=== PATIENT | female | born 1950 | race African-American/Black ===

== ENCOUNTER → 2016-10-30 | Outpatient (CLI) | payer OTHER ==
[~2016-10-30] VITALS: Ht 170.2 cm; Wt 67.0 kg
[~2016-10-30] MED LIST: CALCIUM; CIPROFLOXACIN500 M1 PO; CRANBERRY PLUS1 EACH PO; ENDOCET 10-3251 EACH PO; FISH OIL 1,001000 M2 PO; FLEXERIL; IBUPROFEN 800800 M1 PO; KLOR-CON 10 ER10 MEQ; LAMISIL250 MG PO; LIPITOR10 MG PO; LISINOPRIL10 MG PO; MEDROL DOSPAK21 TA1 PO; MULTIVITAMINS1 EAC7 PO; NAPROSYN500 MG PO; NOHOMEMEDICATIONS; NORCO 5-325 TA1 EACH PO; NORVASC5 MG PO; PERCOCET 5-3251 EACH; PERCOCET 5-3251 EACH PO; POTASSIUM GLUCONATE; PRILOSEC OTC20 MG PO; TRAZODONE HCL50 MG PO; VENTOLIN17 GM INH; ZOFRAN 4 MG ORAL4 M1 DIS; ZOFRAN4 MG PO; ZPAK PO; [UNRECOGNIZED DRUG - OTHER]
--- NOTE | ~2016-10-30 | HPC ---
[facility] [place] [address] PAIN MANAGEMENT CONSULTATION Name: HANNAH RIVERA [id number] Admission: 10/30/16 Attend Phys: Jaxon Melgar MD Discharge: Date of : 54 Report #: [id number] THIS REPORT FOR: //name// CC: Jeffy Melgar DATE OF SERVICE: 10/30/2016 FOLLOWUP COMPLAINT: The pain has improved, but is still really bad. FOLLOWUP HISTORY: The patient is a 66-year-old female who has been seen in the pain clinic because of lumbar radicular pain. As you may recall, she has significant pain radiating down into her leg, particularly in the L4-L5 distribution. She underwent an epidural steroid injection at the last visit. She returns indicating that her pain is improved, but still is having pain, which is problematic. She has not had any problems with her bowel or bladder since the last treatment. She continues to have a constant, burning, aching sensation in her legs. PHYSICAL EXAMINATION: Blood pressure 156/95, pulse 84, respiratory rate 16, room air saturation is 100. The patient has pain and discomfort in the lower portion of her back with burning down to the lower portion of her back and involving her feet. She continues to have a constant burning, aching, pounding pain with numbness in the L4-L5 distribution, lumbar radiculopathy involving the L4-L5 distribution with significant narrowing in the lumbar area. There is severe spinal stenosis seen with cord narrowing to 0.47 cm at L4-L5. At L3-L4, there is bulging seen with zzdjscmg-ci-ezhadi facet changes in moderate ligamentum flavum hypertrophy, severe stenosis with canal narrowing of 0.44 cm with some lateral recess narrowing and mild neural foraminal narrowing at L2-L3. IMPRESSION: 1. Lumbar radiculopathy with spinal stenosis and severe narrowing as described above. 2. Hypertension. 3. Hypercholesterolemia. 4. Gastrointestinal problems with use of . RECOMMENDATIONS: We discussed treatment options with the patient. Risks and benefits of an epidural steroid were again reviewed. Possible complications, but not limited to infection, increased muscle soreness, headache, weakness, worsening of pain were discussed and the patient elects to proceed. PROCEDURE NOTE: The patient was placed in the prone position. Fluoroscopy was used to identify the L4-L5 interspace. This area had been sterilely prepped with Betadine and infiltrated with 0.25% bupivacaine. A total of [address] [address] PAIN MANAGEMENT CONSULTATION Name: HANNAH RIVERA Room #: REG [facility]#: [id number] Admission: 10/30/16 Attend Phys: Jaxon Melgar MD Discharge: Date of : 54 Report #: [id number] Depo-Medrol plus 40 mg triamcinolone very slowly was injected into the L4-L5 space. During the procedure, the patient was constantly queried about her sensation. No sensation or discomfort was experienced during the procedure. She remained in the pain clinic for an appropriate amount of time. She is scheduled to go to [place] to see a play. Hopefully, when she gets there, she will be able to enjoy herself. We would like to thank you for letting us participate in her care. We hope she continues to improve. By: 1600 [id number] Jaxon Melgar MD /nt
[2016-10-30 13:06] VITALS: BP 156/95
== END ==
LOC: PAIN 06:36
DX: M54.16 Radiculopathy, lumbar region (principal); M48.06 Spinal stenosis, lumbar region; I10 Essential (primary) hypertension; E78.00 Pure hypercholesterolemia, unspecified; F17.210 Nicotine dependence, cigarettes, uncomplicated

== ENCOUNTER 2017-05-13 09:39 | Inpatient (IN) | payer OTHER ==
[~2017-05-13] VITALS: Ht 167.6 cm; Wt 62.1 kg
--- NOTE | ~2017-05-13 | HC ---
[facility] [address] CONSULTATION Name: HANNAH RIVERA Room #: 352-P ADM IN M.R.#: [id number] Admission: 05/13/17 Attend Phys: Sharif Smith DO Discharge: Date of : 54 Report #: [id number] THIS REPORT FOR: //name// CC: Sharif Smith DO Jeffy Reyes MD DATE OF SERVICE: 05/13/2017 TYPE OF REPORT: Gastroenterology consultation. PATIENT OF: Jeffy Reyes M.D. and Sharif Smith D.O. CHIEF COMPLAINT AND HISTORY OF PRESENT ILLNESS: This is a very pleasant 67-year-old -[place] female whom I was asked to evaluate for possible etiologies of nausea, vomiting, diarrhea and dizziness for the last 5 days. The patient presented with what appeared to be a urinary tract infection, possibly also a pyelonephrosis with sepsis. She was admitted and is having a workup done for this diagnosis. The patient tells me she has been experiencing dizziness and chills and fevers for the last 5 days. She has gone into an acute renal insufficiency episode with a creatinine of 2.4 right now. PAST MEDICAL HISTORY: Significant for diverticulosis, hypertension, hyperlipidemia, urinary tract infections and arthritis. PAST SURGICAL HISTORY: Significant for bilateral tubal ligation and total abdominal hysterectomy. ALLERGIES: PENICILLIN, SULFA and CHOCOLATE. MEDICATIONS: Prior to admission included oxycodone, omeprazole, multiple vitamins, Flexeril, terbinafine, Norvasc, Lipitor, cranberry, fish oil and potassium gluconate, Medrol Dosepak, lisinopril and trazodone. SOCIAL HISTORY: She does smoke. She does drink alcohol. FAMILY HISTORY: Negative for colon polyps, colon cancer, Crohn's disease and ulcerative colitis. REVIEW OF SYSTEMS: She denies any dysphagia, odynophagia, gastroesophageal reflux, hiatal hernia or peptic ulcer disease. She said her weight has been going down though her appetite is marginal. She has been taking Aleve for her back pain. She has been experiencing nausea, vomiting and diarrhea. Denies any constipation. She denies any hematemesis, hematochezia or melena. She denies any abdominal pain. [address] [address] CONSULTATION Name: HANNAH RIVERA Room #: 352-P [facility] IN ..#: [id number] Admission: 05/13/17 Attend Phys: Sharif Smith DO Discharge: Date of : 54 Report #: [id number] PHYSICAL EXAMINATION: GENERAL: Reveals a well-developed, well-nourished 67-year-old -[place] female, in no apparent distress at the time of the examination and is awake, alert and oriented x 4 and cooperative and pleasant to converse with. VITAL SIGNS: Blood pressure is 119/69, temperature 97.9, pulse 83 and respirations are 13. HEENT: She appears normocephalic and atraumatic and anicteric. HEART: Rate and rhythm are regular with a normal S1 and S2. LUNGS: Clear bilaterally. ABDOMEN: Soft, bowel sounds present in all 4 quadrants. There is no palpable organomegaly or mass. There is no tenderness, rebound or guarding. EXTREMITIES: Warm and dry. No peripheral cyanosis, clubbing or edema. NEUROLOGICAL: She appears grossly intact without lateralizing signs. SIGNIFICANT LABORATORY DATA: Her BMP has the following abnormalities: Sodium is low at 135, potassium is 3.5, BUN is 32, creatinine 2.4 and glucose was 168. Liver enzymes are normal except for an alkaline phosphatase of 129, which is mildly elevated. She also has a low lipase level at 71. Albumin is low at 2.6. White blood cell count is 15,000; hemoglobin 11.7; hematocrit 35.9; MCV is 86; MCH 28; MCHC 32.5; RDW is 14.8 and platelets are 229,000. Urinalysis showed 2+ protein, 2+ blood and nitrites were positive. RADIOLOGICAL DATA: Significant CT scans showed central calcification in the right kidney. This probably vascular. They do think it is a stone. The left kidney showed perinephric stranding. There is soft tissue prominence with a calcification in the region of the proximal left ureter, looks like a large renal vein adjacent to the ureter. There is a 3 x 1.8 cm left adrenal mass of undetermined etiology and it has not changed since 2013. Diverticulosis was also noted. IMPRESSION: 1. Nausea, vomiting and diarrhea for 5 days associated with fevers and chills. The patient has also been taking Aleve 200 mg 3 times a day. I think it is most likely related to urinary tract infection or pyelonephritis with possible sepsis. 2. Acute urinary tract infection with possible pyelonephritis. 3. Acute renal insufficiency, creatinine 2.4. 4. Hypertension. 5. Hyperlipidemia. 6. Arthritis of her lower back after a fall. 7. Status post bilateral tubal ligation and hysterectomy. 8. Diverticulosis on CT scan. RECOMMENDATIONS: My recommendations are as follows: We will start her on some Pepcid b.i.d. IV. We will keep her n.p.o. after midnight for an EGD in the [facility] [address] [place] [address] CONSULTATION Name: HANNAH RIVERA Room #: 352-P [facility] IN M.R.#: [id number] Admission: 05/13/17 Attend Phys: Sharif Smith DO Discharge: Date of : 54 Report #: [id number] morning. We will recheck a BMP and a CBC in the morning and we will also check her stools for blood as well as for etiologies of diarrhea. Thank you very much once again for allowing me to participate in her care, Dr. Smith and Dr. Reyes. <ELECTRONICALLY SIGNED> By: Salina Diego DO 05/13/17 2140 1648 30 Salina Diego DO /nt
--- NOTE | ~2017-05-13 | S ---
[facility] [place] [address] SURGICAL PATH RPT PROCEDURE Name: HANNAH RIVERA Room #: 352-P [facility] IN M.R.#: [id number] Admission: 05/13/17 Date of : 54 Discharge: 05/18/17 Report #: [id number] Path Case #: [id number] PATHOLOGY REPORT COLLECTION DATE: 05/17/2017 RECEIVED DATE: 05/17/2017 SUBMITTING PHYS: Dr. Freddy Escobedo OTHER PHYS: Dr. Sharif Reyes SPECIMEN(S) RECEIVED: A.Gallbladder * * * * * * * * * * * * FINAL DIAGNOSIS: Gallbladder "gallbladder and cholecystectomy": - Chronic cholecystitis with cholesterolosis. (SHA:mml; 05/18/2017) PATHOLOGIST: Junior Diaz M.D. REPORT ELECTRONICALLY SIGNED BY: Junior Diaz M.D. DATE/TIME: 05/18/2017 13:34 * * * * * * * * * * * * GROSS PATHOLOGY: Received in formalin labeled "Hannah Rivera gallbladder," is a 7.4 x 4.6 x 1.0 cm, previously opened gallbladder with light rogers, wrinkled serosal surfaces. Opening the gallbladder reveals light rogers, velvety mucosa and an average wall thickness of 0.2 cm. Calculi are not present (upon filtration of the specimen container and contents) and no masses are noted grossly. Loading Dock Hand sections from the body and fundus are submitted along with the proximal margin in cassette A1. (TSD; 05/17/2017) CLINICAL HISTORY: Pre-OP DX: Cholelithiasis and cholecystitis Post -OP DX: Cholecystitis, cholesterolosis INITIAL CPT CODE(S): A; 35767 Professional services performed by [facility] at [address] [place] [address] [facility] [address] [place] [address] SURGICAL PATH RPT PROCEDURE Name: HANNAH RIVERA Room #: 352-P [facility] IN M.R.#: [id number] Admission: 05/13/17 Date of : 54 Discharge: 05/18/17 Report #: [id number] Path Case #: [id number] Technical services performed by [facility] at [address] [place] [address], [facility] [address], [place] [address]. [facility] [address] [place] [address] PHONE: [phone] DIRECTOR: Antony Valverde M.D. * * * END OF REPORT * * *
--- NOTE | ~2017-05-13 | S ---
[facility] [place] [address] SURGICAL PATH RPT PROCEDURE Name: HANNAH RIVERA Room #: 352-P ADM IN M.R.#: [id number] Admission: 05/13/17 Date of : 54 Discharge: Report #: [id number] Path Case #: [id number] PATHOLOGY REPORT COLLECTION DATE: 05/14/2017 RECEIVED DATE: 05/14/2017 SUBMITTING PHYS: Dr. Lucho Adams OTHER PHYS: Dr. Sharif Reyes SPECIMEN(S) RECEIVED: A.Small bowel and antrum * * * * * * * * * * * * FINAL DIAGNOSIS: Small intestinal mucosa and gastric mucosa "small bowel and antrum, multiple biopsies": - Duodenal mucosa revealing mild focal acute and chronic duodenitis with lamina propria lymphocytes, plasma cells, and few neutrophils and eosinophils, without any acute ulceration. - The gastric mucosa reveals mild chronic reactive gastropathy with mild chronic inflammation. - The immunoperoxidase stains for Helicobacter pylori is negative. - Diagnostic features of Sprue are not seen. However suggest clinical and laboratory correlation. (SHA:pit; 05/17/2017) PATHOLOGIST: Junior Diaz M.D. REPORT ELECTRONICALLY SIGNED BY: Junior Diaz M.D. DATE/TIME: 05/17/2017 14:27 * * * * * * * * * * * * GROSS PATHOLOGY: Received in formalin labeled "Hannah Rivera, biopsy of small bowel and antrum, rule out H. pylori," are 4 segments of rogers soft tissue measuring 1.0 x 0.7 x 0.3 cm in aggregate dimensions and ranging from 0.3 to 0.5 cm in maximum dimension. The specimen is submitted entirely in cassette A1. (TSD; 05/14/2017) CLINICAL HISTORY: Pre-BX: Nausea, vomiting, diarrhea Post-OP DX: Duodenal ulcers, gastritis, Schatzki's ring INITIAL CPT CODE(S): [facility] [address] [place] [address] SURGICAL PATH RPT PROCEDURE Name: HANNAH RIVERA Room #: [address] [place] [address] [place] [facility].#: [id number] Admission: 05/13/17 Date of : 54 Discharge: Report #: [id number] Path Case #: [id number] A; [id number], [id number] Professional services performed by [facility] at [address] [place], [place] [address] Technical services performed by [facility] at [address] [place] [address], [address], [place] [address]. [facility] [place] [address] PHONE: [phone] DIRECTOR: Antony Valverde M.D. * * * END OF REPORT * * *
[2017-05-13 09:45] VITALS: BP 138/82
[2017-05-13 10:01] LABS: HEMATOCRIT 35.9 % (37.0-47.0); HEMOGLOBIN 11.7 gm/dL (12.0-15.0); MCHC 32.5 g/dL (28.0-37.0); MCV 86.1 fL (80.0-100.0); PLATELET COUNT 229 thou/uL (150-400); RBC 4.17 mil/uL (4.20-5.00); RDW 14.8 % (10.5-14.5)
[2017-05-13 10:03] LABS: MANUAL DIFF YES
[2017-05-13 10:09] LABS: CALCIUM 9.5 mg/dL (8.5-10.1); CREATININE 2.4 mg/dL (0.6-1.0); POTASSIUM 3.8 mmol/L (3.5-5.1)
[2017-05-13 10:14] LABS: ALBUMIN 2.6 g/dL (3.4-5.0); TOTAL BILIRUBIN 0.6 mg/dL (<0.1-1.0); TOTAL PROTEIN 7.1 g/dL (6.4-8.2)
[2017-05-13 10:53] LABS: ABSOLUTE NEUTROPHILS 13.5 thou/uL (1.4-8.2); PLATELET ESTIMATE NORMAL; TOTAL CELL COUNT 100
[2017-05-13 11:28] LABS: URINE BILIRUBIN NEGATIVE (Negative); URINE BLOOD 2+ (Negative); URINE COLOR YELLOW; URINE GLUCOSE-RANDOM* NEGATIVE (Negative); URINE KETONES NEGATIVE (Negative); URINE NITRITE POSITIVE (Negative); URINE PROTEIN (DIPSTICK) 2+ (Negative); URINE SPECIFIC GRAVITY 1.025 (1.005-1.035); URINE UROBILINOGEN 0.2 E.U./dl (0.2-1.0)
[2017-05-13 11:35] LABS: CASTS None Seen /LPF (None Seen); CRYSTALS None Seen /LPF (None Seen); SQUAMOUS 0-3 Few /LPF (0-3)
[2017-05-13 11:36] LABS: BACTERIA >30 Many /HPF (None Seen); URINE RBC 3-10 Few /HPF (0-2); URINE WBC 6-15 Few /HPF (0-5)
[2017-05-13 13:49] VITALS: BP 119/69
[2017-05-13 15:30] VITALS: BP 112/82
[2017-05-13 20:00] VITALS: BP 94/39
[2017-05-14 04:00] VITALS: BP 107/62
[2017-05-14 06:31] LABS: ABSOLUTE NEUTROPHILS 6.7 thou/uL (1.4-8.2); BASOPHILS 0.3 % (0.0-2.0); EOSINOPHILS 0.8 % (0.0-3.0); HEMATOCRIT 25.7 % (37.0-47.0); LYMPHOCYTES 9.2 % (24.0-44.0); MCH 28.8 pg (26.0-34.0); MCHC 33.4 g/dL (28.0-37.0); MCV 86.4 fL (80.0-100.0); MONOCYTES 7.7 % (1.0-8.0); PLATELET COUNT 178 thou/uL (150-400); RBC 2.97 mil/uL (4.20-5.00); WBC 8.1 thou/uL (4.0-11.0)
[2017-05-14 06:36] LABS: HEMOGLOBIN 8.6 gm/dL (12.0-15.0)
[2017-05-14 06:37] LABS: MANUAL DIFF NO
[2017-05-14 06:46] LABS: CALCIUM 8.1 mg/dL (8.5-10.1); CREATININE 1.7 mg/dL (0.6-1.0); POTASSIUM 4.1 mmol/L (3.5-5.1)
[2017-05-14 07:28] VITALS: BP 105/44
[2017-05-14 11:37] VITALS: BP 115/55
[2017-05-14 19:45] VITALS: BP 151/82
[2017-05-14] MEDS ORDERED: LYRICA 50 MG50 MG PO (23:03)
[2017-05-15 05:05] VITALS: BP 144/76
[2017-05-15 06:15] LABS: ABSOLUTE NEUTROPHILS 4.4 thou/uL (1.4-8.2); BASOPHILS 0.6 % (0.0-2.0); EOSINOPHILS 0.6 % (0.0-3.0); HEMATOCRIT 27.2 % (37.0-47.0); HEMOGLOBIN 8.9 gm/dL (12.0-15.0); LYMPHOCYTES 13.4 % (24.0-44.0); MCH 28.1 pg (26.0-34.0); MCHC 32.8 g/dL (28.0-37.0); MCV 85.5 fL (80.0-100.0); MONOCYTES 8.5 % (1.0-8.0); PLATELET COUNT 213 thou/uL (150-400); POLYS 76.9 % (36.0-66.0); RBC 3.18 mil/uL (4.20-5.00); WBC 5.7 thou/uL (4.0-11.0)
[2017-05-15 06:18] LABS: MANUAL DIFF NO
[2017-05-15 06:29] LABS: CALCIUM 9.2 mg/dL (8.5-10.1); CREATININE 1.8 mg/dL (0.6-1.0)
[2017-05-15 07:49] VITALS: BP 120/52
[2017-05-15 15:48] VITALS: BP 128/54
[2017-05-15 19:05] VITALS: BP 109/56
[2017-05-16 03:23] LABS: ABSOLUTE NEUTROPHILS 3.6 thou/uL (1.4-8.2); BASOPHILS 0.6 % (0.0-2.0); HEMATOCRIT 25.5 % (37.0-47.0); HEMOGLOBIN 8.5 gm/dL (12.0-15.0); LYMPHOCYTES 22.6 % (24.0-44.0); MCH 28.4 pg (26.0-34.0); MCHC 33.4 g/dL (28.0-37.0); MCV 85.1 fL (80.0-100.0); MONOCYTES 10.9 % (1.0-8.0); PLATELET COUNT 242 thou/uL (150-400); POLYS 63.9 % (36.0-66.0); RBC 2.99 mil/uL (4.20-5.00); RDW 15.5 % (10.5-14.5); WBC 5.7 thou/uL (4.0-11.0)
[2017-05-16 03:25] VITALS: BP 139/62
[2017-05-16 03:25] LABS: MANUAL DIFF NO
[2017-05-16 03:42] LABS: CALCIUM 8.4 mg/dL (8.5-10.1); CREATININE 1.6 mg/dL (0.6-1.0); POTASSIUM 3.9 mmol/L (3.5-5.1)
[2017-05-16 07:40] VITALS: BP 130/64
[2017-05-16 16:00] VITALS: BP 110/88
[2017-05-16 20:00] VITALS: BP 108/56
[2017-05-17 04:00] VITALS: BP 122/56
[2017-05-17 05:56] LABS: HEMATOCRIT 26.2 % (37.0-47.0); HEMOGLOBIN 8.7 gm/dL (12.0-15.0); MCH 28.3 pg (26.0-34.0); MCHC 33.1 g/dL (28.0-37.0); MCV 85.5 fL (80.0-100.0); RBC 3.06 mil/uL (4.20-5.00); RDW 15.9 % (10.5-14.5); WBC 5.3 thou/uL (4.0-11.0)
[2017-05-17 06:22] LABS: ALBUMIN 2.2 g/dL (3.4-5.0); CALCIUM 8.9 mg/dL (8.5-10.1); CREATININE 1.5 mg/dL (0.6-1.0); POTASSIUM 3.5 mmol/L (3.5-5.1); TOTAL BILIRUBIN 0.4 mg/dL (<0.1-1.0); TOTAL PROTEIN 5.4 g/dL (6.4-8.2)
[2017-05-17 07:35] VITALS: BP 133/57
[2017-05-17 08:34] VITALS: BP 130/91
[2017-05-17 16:00] VITALS: BP 108/55
[2017-05-17 19:02] VITALS: BP 110/56
[2017-05-18 04:41] VITALS: BP 123/66
[2017-05-18 06:39] LABS: HEMATOCRIT 25.1 % (37.0-47.0); HEMOGLOBIN 8.2 gm/dL (12.0-15.0); MCH 27.7 pg (26.0-34.0); MCHC 32.6 g/dL (28.0-37.0); RBC 2.95 mil/uL (4.20-5.00); RDW 15.6 % (10.5-14.5); WBC 7.8 thou/uL (4.0-11.0)
[2017-05-18 06:54] LABS: ALBUMIN 2.2 g/dL (3.4-5.0); CREATININE 1.3 mg/dL (0.6-1.0); POTASSIUM 3.7 mmol/L (3.5-5.1); TOTAL BILIRUBIN 0.2 mg/dL (<0.1-1.0); TOTAL PROTEIN 5.5 g/dL (6.4-8.2)
[2017-05-18 07:38] VITALS: BP 108/50
[2017-05-18] MEDS ORDERED: FLAGYL500 MG PO (08:12)
[2017-05-18] MEDS ORDERED: CIPRO500 MG PO (08:12)
[2017-05-18 17:51] VITALS: BP 108/50
== END 2017-05-18 19:15 | disposition home or self-care (01) | DRG 854 ==
LOC: ER 09:39 → 3W 10:56 → EROBS 10:56 → 3W 14:16 → ENTRNSPT 05-18 19:06 → 3W 05-18 19:15
PROVIDERS: Family Medicine; Physician Assistant; Surgery
PROC: 0DB68ZX Excision of Stomach, Via Natural or Artificial Opening Endoscopic, Diagnostic (ICD-10-PCS; 2017-05-14)
PROC: 0DB98ZX Excision of Duodenum, Via Natural or Artificial Opening Endoscopic, Diagnostic (ICD-10-PCS; 2017-05-14)
PROC: 0FT44ZZ Resection of Gallbladder, Percutaneous Endoscopic Approach (ICD-10-PCS; principal; 2017-05-17)
PROC: BF121ZZ Fluoroscopy of Gallbladder using Low Osmolar Contrast (ICD-10-PCS; principal; 2017-05-17)
DX: A41.9 Sepsis, unspecified organism (principal); N39.0 Urinary tract infection, site not specified; N17.9 Acute kidney failure, unspecified; N12 Tubulo-interstitial nephritis, not specified as acute or chronic; K80.10 Calculus of gallbladder with chronic cholecystitis without obstruction; K57.90 Diverticulosis of intestine, part unspecified, without perforation or abscess without bleeding; R65.20 Severe sepsis without septic shock; I10 Essential (primary) hypertension; E78.5 Hyperlipidemia, unspecified; M19.90 Unspecified osteoarthritis, unspecified site; F17.210 Nicotine dependence, cigarettes, uncomplicated; E86.0 Dehydration; K22.2 Esophageal obstruction; K44.9 Diaphragmatic hernia without obstruction or gangrene; K26.9 Duodenal ulcer, unspecified as acute or chronic, without hemorrhage or perforation; Z60.2 Problems related to living alone; K31.89 Other diseases of stomach and duodenum; D64.9 Anemia, unspecified; K52.9 Noninfective gastroenteritis and colitis, unspecified; Z90.710 Acquired absence of both cervix and uterus; Z88.0 Allergy status to penicillin; Z88.2 Allergy status to sulfonamides; Z79.899 Other long term (current) drug therapy; Z79.1 Long term (current) use of non-steroidal anti-inflammatories (NSAID)
CPT/HCPCS: 10879; 50010; 50101; 50249; 50411; 50555; 50962; 51489; 51975; 52265; 53307; 53314; 54022; 54118; 55245; 55317; 56462; 56525; 56526; 62110; 62900; 70005

== ENCOUNTER 2017-12-08 12:27 | Inpatient (IN) | payer OTHER ==
[~2017-12-08] VITALS: Ht 167.6 cm; Wt 60.1 kg
--- NOTE | ~2017-12-08 | EKG ---
[place] [address] [employer] [facility] [place] [address] ELECTROCARDIOGRAM REPORT Name: HANNAH RIVERA Room #: 455-P ADM IN M.R.#: [id number] Admission: 12/08/17 Attend Phys: Antoni Snell MD Discharge: Date of : 54 Report #: [id number] THIS REPORT FOR: //name// [facility] ED Test Date: 2017-12-08 Test Time: 12:58:43 Pat Name: HANNAH RIVERA Department: Room: Gender: F Import/Export Clerk: : 1950 Requested By: Guerrero Salazar Order Number: [id number] MD: Chad Simeon Measurements Intervals [place] Rate: 83 P: 48 W[place]: 160 QRS: -9 QRSD: 91 T: 47 QT: 382 QTc: 449 Interpretive Statements Sinus rhythm Probable anteroseptal infarct, age indeterminate Compared to ECG 12/14/2012 20:16:24 No significant changes Electronically Signed On 12-09-2017 8:01:55 CDT by Chad Simeon [email or web address] <ELECTRONICALLY SIGNED> By: Chad Simeon MD, [facility] 12/09/17 0801 1258 1258 Chad Simeon MD, [facility] /EPI
[~2017-12-08 12:27] MED LIST changes: +CIPRO500 MG PO; +FLAGYL500 MG PO; +LYRICA 50 MG50 MG PO
[2017-12-08 12:30] VITALS: BP 119/63
[2017-12-08 12:58] LABS: ABSOLUTE NEUTROPHILS 8.8 thou/uL (1.4-8.2); BASOPHILS 0.7 % (0.0-2.0); EOSINOPHILS 1.2 % (0.0-3.0); HEMATOCRIT 45.7 % (37.0-47.0); HEMOGLOBIN 15.3 gm/dL (12.0-15.0); LYMPHOCYTES 21.6 % (24.0-44.0); MCH 29.5 pg (26.0-34.0); MCHC 33.5 g/dL (28.0-37.0); MONOCYTES 6.2 % (1.0-8.0); PLATELET COUNT 261 thou/uL (150-400); POLYS 70.3 % (36.0-66.0); RBC 5.19 mil/uL (4.20-5.00); RDW 15.3 % (10.5-14.5); WBC 12.5 thou/uL (4.0-11.0)
[2017-12-08 13:03] LABS: ANION GAP 7 mmol/L (7-16); BUN 37 mg/dL (7-18); CALCIUM 10.7 mg/dL (8.5-10.1); CHLORIDE 97 mmol/L (98-107); CO2 28 mmol/L (21-32); CREATININE 2.7 mg/dL (0.6-1.0); GLUCOSE 121 mg/dL (74-106); POTASSIUM 4.1 mmol/L (3.5-5.1); SODIUM 132 mmol/L (136-145)
[2017-12-08 13:12] LABS: ALBUMIN 4.1 g/dL (3.4-5.0); LIPASE 90 U/L (73-393); SGOT 23 U/L (15-37); SGPT 40 U/L (30-65); TOTAL BILIRUBIN 0.9 mg/dL (<0.1-1.0); TOTAL PROTEIN 8.2 g/dL (6.4-8.2); TROPONIN-I <0.06 ng/mL (<0.06)
[2017-12-08 14:01] LABS: URINE BILIRUBIN NEGATIVE (Negative); URINE BLOOD NEGATIVE (Negative); URINE CLARITY CLEAR; URINE COLOR YELLOW; URINE GLUCOSE-RANDOM* NEGATIVE (Negative); URINE KETONES NEGATIVE (Negative); URINE LEUKOCYTES-REFLEX NEGATIVE (Negative); URINE NITRITE-REFLEX NEGATIVE (Negative); URINE PROTEIN (DIPSTICK) TRACE (Negative); URINE UROBILINOGEN 0.2 E.U./dl (0.2-1.0)
[2017-12-08 14:54] VITALS: BP 101/76
[2017-12-08 15:40] VITALS: BP 101/76
[2017-12-08 15:50] VITALS: BP 169/115
[2017-12-08 19:26] VITALS: BP 158/83
[2017-12-09 04:54] VITALS: BP 147/81
[2017-12-09 05:44] LABS: HEMATOCRIT 39.7 % (37.0-47.0); HEMOGLOBIN 13.4 gm/dL (12.0-15.0); MCH 30.1 pg (26.0-34.0); MCHC 33.6 g/dL (28.0-37.0); MCV 89.5 fL (80.0-100.0); RBC 4.44 mil/uL (4.20-5.00); RDW 15.1 % (10.5-14.5); WBC 7.5 thou/uL (4.0-11.0)
[2017-12-09 05:50] LABS: CALCIUM 9.4 mg/dL (8.5-10.1); CREATININE 1.6 mg/dL (0.6-1.0); POTASSIUM 3.9 mmol/L (3.5-5.1)
[2017-12-09] MEDS ORDERED: PROTONIX40 M1 PO (09:19)
[2017-12-09 14:01] VITALS: BP 147/81
[2017-12-09 16:16] LABS: NEISSERIA GONORRHEA-PCR Negative (Negative)
== END 2017-12-09 14:29 | disposition home or self-care (01) | DRG 871 ==
LOC: ER 12:27 → 4W 14:31 → EROBS 14:31 → 4W 15:35 → ENTRNSPT 12-09 14:19 → EDTRNSPTSTS 12-09 14:22 → 4W 12-09 14:29
PROVIDERS: Hospitalist; Physician Assistant
DX: A41.9 Sepsis, unspecified organism (principal); N17.0 Acute kidney failure with tubular necrosis; A08.4 Viral intestinal infection, unspecified; I10 Essential (primary) hypertension; F17.210 Nicotine dependence, cigarettes, uncomplicated; K29.70 Gastritis, unspecified, without bleeding; Z90.710 Acquired absence of both cervix and uterus; Z88.0 Allergy status to penicillin; Z88.2 Allergy status to sulfonamides; Z88.8 Allergy status to other drugs, medicaments and biological substances; Z79.899 Other long term (current) drug therapy
CPT/HCPCS: 10045

== ENCOUNTER 2017-12-11 13:41 | Emergency (ER) | payer OTHER ==
[~2017-12-11] VITALS: Ht 167.6 cm; Wt 59.0 kg
[~2017-12-11 13:41] MED LIST changes: +PROTONIX40 M1 PO
[2017-12-11 14:07] LABS: ABSOLUTE NEUTROPHILS 7.3 thou/uL (1.4-8.2); BASOPHILS 0.3 % (0.0-2.0); EOSINOPHILS 2.9 % (0.0-3.0); HEMATOCRIT 43.8 % (37.0-47.0); HEMOGLOBIN 14.5 gm/dL (12.0-15.0); MCH 29.5 pg (26.0-34.0); MCHC 33.2 g/dL (28.0-37.0); MCV 88.8 fL (80.0-100.0); MONOCYTES 5.6 % (1.0-8.0); PLATELET COUNT 226 thou/uL (150-400); POLYS 80.2 % (36.0-66.0); RBC 4.93 mil/uL (4.20-5.00); WBC 9.1 thou/uL (4.0-11.0)
[2017-12-11 14:20] LABS: CALCIUM 10.5 mg/dL (8.5-10.1); CREATININE 1.3 mg/dL (0.6-1.0); POTASSIUM 4.2 mmol/L (3.5-5.1)
[2017-12-11 14:26] LABS: TOTAL BILIRUBIN 0.6 mg/dL (<0.1-1.0)
[2017-12-11] MEDS ORDERED: ONDANSETRON HCL4 M2 PO ×2 (15:59→16:35)
[2017-12-11] MEDS ORDERED: BENTYL 20 MG TA20 M1 PO ×2 (15:59→16:35)
== END 2017-12-11 17:07 | disposition home or self-care (01) ==
LOC: ER 13:41
PROVIDERS: Nurse Practitioner Family
DX: R10.13 Epigastric pain (principal); F17.210 Nicotine dependence, cigarettes, uncomplicated; I10 Essential (primary) hypertension; Z90.710 Acquired absence of both cervix and uterus; Z88.0 Allergy status to penicillin; Z88.2 Allergy status to sulfonamides; Z91.018 Allergy to other foods

== ENCOUNTER → 2018-12-29 | Outpatient (CLI) | payer OTHER ==
[~2018-12-29] MED LIST changes: +BENTYL 20 MG TA20 M1 PO; +ONDANSETRON HCL4 M2 PO
== END ==
LOC: MRI 14:10
DX: M47.26 Other spondylosis with radiculopathy, lumbar region (principal); M43.16 Spondylolisthesis, lumbar region; M48.061 Spinal stenosis, lumbar region without neurogenic claudication

== ENCOUNTER → 2019-02-15 | Outpatient (CLI) | payer OTHER ==
[~2019-02-15] VITALS: Ht 170.2 cm; Wt 59.4 kg
--- NOTE | ~2019-02-15 | HPC ---
[facility] [place] [address] PAIN MANAGEMENT CONSULTATION Name: HANNAH RIVERA Room #: REG [facility].#: [id number] Admission: 02/15/19 Attend Phys: Jaxon Melgar MD Discharge: Date of : 54 Report #: [id number] THIS REPORT FOR: //name// CC: Jeffy Melgar DATE OF SERVICE: 02/15/2019 CHIEF COMPLAINT: Low back pain that goes down into the buttocks on both sides and involves legs and feet. HISTORY: The patient is a 68-year-old female who has been seen in the pain clinic because of chronic pain. She has noticed some increased pain and discomfort in her right leg. She is having some difficulty in lifting her right leg. Notes that when she goes upstairs this can be problematic. Notes that there is pain when she is standing, when she is cooking, and involves her left side as well as the right. Also, has some right hip pain and discomfort. Her right hip is "going out." Has some burning discomfort in her right leg. She has noted some spasms in her feet and some numbness into her feet. Pain involves the L4-L5 area in the past. She feels that is in a similar pattern today. ALLERGIES: PENICILLIN, SULFA, AND CHOCOLATE. CURRENT MEDICATIONS: Bentyl 20 mg, Protonix 40 mg, Lyrica 50 mg, lisinopril 10 mg, Lipitor 10 mg, Endocet 10/325, Norvasc 5 mg, Lamisil 250 mg, multivitamin, and Flexeril 10 mg t.i.d. PAIN CLINIC ASSESSMENT/PQRS: 1. Osteoarthritis. The patient has some osteoarthritic changes in her back. She is not being treated for rheumatoid arthritis. 2. Height 5 feet 7 inches, weight 131 pounds, BMI is 20. 3. Vital signs: Blood pressure 137/59, pulse 82, respiratory rate 14, room air saturation 100%. 4. Pain intensity 01/07. 5. Fall risk. The patient has not fallen in the last 3 months. 6. Blood thinner. The patient is not on a blood thinning medication. 7. Hypertension. The patient is being treated for hypertension. 8. Opioids greater than 6 weeks, . 9. Risk assessment tool, low for opioid risk. 10. Functional assessment tool . 11. Recreational drug use, . 12. Tobacco: The patient smokes 1 pack of cigarettes per day, has smoked for many years. 13. Alcohol: The patient drinks about 2-3 [place] [address] PAIN MANAGEMENT CONSULTATION Name: HANNAH RIVERA Room #: REG [facility]#: [id number] Admission: 02/15/19 Attend Phys: Jaxon Melgar MD Discharge: Date of : 54 Report #: [id number] LABORATORY DATA: No new laboratory values are available. MRI dated 03/09/2016, grade 1 anterolisthesis of L4/L5. No significant disk narrowing. 1. L5-S1 demonstrated moderate facet changes without significant bulging or spinal stenosis. 2. L4-L5 moderate bulging is seen with marked facet changes and ligamentum flavum hypertrophy associated with a grade 1 subluxation. Severe stenosis is seen with canal narrowing of 0.4 cm with lateral recess narrowing and elfh-hi-tphskehr bilateral neural foraminal narrowing. 3. L3-L4 mild bulging is seen with nzvpbdvm-fs-hinwkt facet changes and moderate ligamentum flavum hypertrophy. Severe stenosis with canal narrowing of 0.44 cm with some lateral recess narrowing and mild neural foraminal narrowing. 4. L2-L3 very slight bulging is seen with moderate facet changes and significant ligamentum flavum hypertrophy. There does appear to be significant stenosis with the canal narrowing of 0.5 cm with mild lateral recess narrowing. PHYSICAL EXAMINATION: GENERAL: The patient is a well-developed, well-nourished black female, alert and oriented x 3. Her affect is appropriate. Speech is fluent. HEENT: Normocephalic, atraumatic. Extraocular eye muscles intact. Sclerae nonicteric. Mucous membranes are moist. NECK: Without adenopathy or JVD. HEART: Regular rate. LUNGS: Clear to auscultation. ABDOMEN: Nontender. EXTREMITIES: Upper extremity muscle strength judged to be 5-/5 for the major muscle groups in the upper extremity. The patient is without significant kyphosis, scoliosis. Lower extremity muscle strength is judged to be 5-/5 for the major muscle groups in the lower extremity. The patient complains of pain and discomfort with prolonged standing and with activity. Complains of pain that radiates down into her right hip. Notes some spasms and numbing in her feet with prolonged standing. Has some difficulty lifting her right leg. IMPRESSION: Spinal stenosis, severe in the lower extremity at L4-L5 with left and right radicular pain in the L4-L5 dermatomal distribution. RECOMMENDATIONS: We discussed treatment options with the patient. Risks and benefits of an epidural steroid injection were discussed. The patient's neurosurgeon had requested that she come to the pain clinic for evaluation and for facet joint injections. The patient is aware of the possible complications of facet joint injection. It includes infection, worsening of pain, no improvement in pain and the patient elects to proceed. PROCEDURE NOTE: The patient was taken to the procedure area. She was then assisted in getting on examination table. The facet joint at L4-L5 was identified. A 25-gauge needle was used to anesthetize the skin on the right [facility] [address] [place] [address] PAIN MANAGEMENT CONSULTATION Name: HANNAH RIVERA Room #: REG [facility].#: [id number] Admission: 02/15/19 Attend Phys: Jaxon Melgar MD Discharge: Date of : 54 Report #: [id number]. A 20-gauge spinal needle was then advanced into the area using fluoroscopy for guidance. After appropriate placement, a total of 20 mg of triamcinolone was injected into the joint area and 20 mg in the surrounding area with 1 mL of 0.5% bupivacaine. The contralateral left side was treated in a like fashion. The facet at L4-L5 was identified. A 25-gauge needle was then used to anesthetize the area. A 20-gauge spinal needle was then advanced into the area of the facet. A total of 20 mg triamcinolone was injected into this area and additional 20 mg was injected in the surrounding area. A total of 2 mL of 0.5% bupivacaine was infiltrated. The patient tolerated the procedure well. There were no complications. She describes her pain as 2/10 at the time of discharge. She will follow up in the future as needed. We would like to thank you for letting us participate in her care. We hope she continues to improve. By: [id number] Jaxon Melgar MD /RAFITA
[2019-02-15 10:26] VITALS: BP 137/59
--- NOTE | 2019-02-15 10:53 | NUR ---
Pain Clinic Assessment: 1. History of Osteoarthritis: BACK History of Rheumatoid Arthritis: 2. Height: 5 ft. 7 in. 170.2 cm. Weight: 131.0 lb. oz. 59.421 kg. Patient's BMI: 20.5 3. Vital Signs: BP: 137/59 Pulse: 82 Resp: 14 Temp: 02 Sat: 100 ECG Mon: 4. Pain Intensity: 8 5. Fall Risk: Dizziness: N Needs help standing or walking: N Fallen in the last 3 months: N Fall risk comments: 6. Patient on Blood Thinner: None 7. History of Hypertension: Y 8. Opioid Therapy greater than 6 weeks: N Opiate Contract Signed: 9. Risk Assessment Tool Provided: LOW RISK 0/3 10. Functional Assessment Tool: 11. Recreational Drug Use: Never Drug Type: Tobacco Use: Current Every Day Smoker Tobacco Type: Cigarettes Amount or Packs/day: 1 PACK/DAY How Many Years: Alcohol Use: Yes Frequency: Weekly Quant: 2-3
== END | disposition home or self-care (01) ==
LOC: PAIN 07:01
DX: I10 Essential (primary) hypertension (principal); M48.00 Spinal stenosis, site unspecified; M19.90 Unspecified osteoarthritis, unspecified site; M53.3 Sacrococcygeal disorders, not elsewhere classified; F17.210 Nicotine dependence, cigarettes, uncomplicated; Z88.1 Allergy status to other antibiotic agents; Z88.0 Allergy status to penicillin; Z88.2 Allergy status to sulfonamides; Z88.8 Allergy status to other drugs, medicaments and biological substances; Z79.899 Other long term (current) drug therapy

== ENCOUNTER → 2019-06-28 | Outpatient (CLI) | payer OTHER ==
[~2019-06-28] VITALS: Ht 170.2 cm; Wt 59.9 kg
[2019-06-28 12:28] VITALS: BP 169/97
--- NOTE | 2019-06-28 12:37 | NUR ---
Pain Clinic Assessment: 1. History of Osteoarthritis: BACK History of Rheumatoid Arthritis: * RHEUMATOID 2. Height: 5 ft. 7 in. 170.2 cm. Weight: 132.0 lb. oz. 59.875 kg. Patient's BMI: 20.7 3. Vital Signs: BP: 169/97 Pulse: 81 Resp: 18 Temp: 02 Sat: 100 ECG Mon: 4. Pain Intensity: 8 5. Fall Risk: Dizziness: N Needs help standing or walking: N Fallen in the last 3 months: N Fall risk comments: 6. Patient on Blood Thinner: None 7. History of Hypertension: Y 8. Opioid Therapy greater than 6 weeks: N Opiate Contract Signed: 9. Risk Assessment Tool Provided: LOW RISK 0/3 10. Functional Assessment Tool: 11. Recreational Drug Use: Never Drug Type: Tobacco Use: Current Every Day Smoker Tobacco Type: Cigarettes Amount or Packs/day: 1 How Many Years: 50 Alcohol Use: Yes Frequency: Weekly Quant: WINE SOCIALLY
--- NOTE | 2019-07-07 08:40 | HPC ---
[facility] [place] [address] PAIN MANAGEMENT CONSULTATION Name: HANNAH RIVERA Room #: REG [facility] [place]#: [id number] Admission: 06/28/19 Attend Phys: Jaxon Melgar MD Discharge: Date of : 54 Report #: [id number] THIS REPORT FOR: cc: Jeffy Reyes MD, Mark S. MD Brown,Jaxon Fierro MD ~ THIS REPORT FOR: //name// CC: Jeffy Melgar DATE OF SERVICE: 06/28/2019 CHIEF COMPLAINT: Low back pain, which goes down into both buttocks, leg and feet. HISTORY: The patient is a 69-year-old female who has been seen in the Pain Clinic because of chronic pain. She has experienced pain that radiates down in the lower portion of her back. She is having pain, which she describes as an 8/10. Over the last 2 years, she has noticed a worsening of her pain. It involves both left and right buttocks areas. It radiates down the posterior portion of her legs and involves her feet. There is a burning pain with numbness and tingling. There is a prickling, achy sensation. Notes that the pain is worse when she is standing, walking and with other activities of daily living. Notes that her medications are helpful and she has found heat helpful as well. Particularly notes a burning sensation when she is walking stairs. She would like to consider an epidural steroid injection in the future. She has undergone an injection at the L4-L5 area and feels that this is the same area, which was problematic in the past. She would like to proceed with another injection. ALLERGIES: PENICILLIN, SULFA, CHOCOLATE. CURRENT MEDICATIONS: Bentyl 20 mg, Protonix 40 mg, Lyrica 50 mg, lisinopril 10 mg, Lipitor 10 mg, Endocet 10/325, Norvasc 5 mg, Lamisil 250 mg, multivitamins, Flexeril 10 mg t.i.d. PAIN CLINIC ASSESSMENT AND PQRS: 1. The patient has osteoarthritic changes involving her back. She is being followed by [facility]. 2. Height 5 feet 7 inches, weight 132 pounds, BMI is 20. 3. Vital signs: Blood pressure 169/97, pulse 81, respiratory rate 18, room air saturation 100%. 4. Pain intensity 10. 5. Fall history: The patient has not fallen in the last 3 months. [facility] [address] [place] [address] PAIN MANAGEMENT CONSULTATION Name: HANNAH RIVERA Room #: REG [facility]#: [id number] Admission: 06/28/19 Attend Phys: Jaxon Melgar MD Discharge: Date of : 54 Report #: [id number] 6. Blood thinner. The patient is not on a blood thinning medication. 7. Hypertension. The patient is being treated for hypertension. 8. Opioids greater than 6 weeks. The patient is receiving her medication from [facility]. The patient's risk assessment tool, low for opioid use. 9. Functional assessment tool 38 of 70. 10. Recreational drugs: The patient denies. 11. Tobacco: The patient smokes cigarettes about 1 pack a day for the last 50 years. She drinks occasionally wine on a social basis. PHYSICAL EXAMINATION: GENERAL: The patient is a well-developed, well-nourished black female, she is alert and oriented x 3. Her affect is appropriate. Speech is fluent. HEENT: Normocephalic, atraumatic. Extraocular eye muscles intact. Sclerae nonicteric. Mucous membranes are moist. NECK: Without adenopathy or JVD. HEART: Regular rate. LUNGS: Clear to auscultation. ABDOMEN: Nontender. EXTREMITIES: Upper extremity muscle strength is judged to be 5/5 for the major muscle groups in the upper extremity. The patient is without significant scoliosis, kyphosis or lordosis. Upper extremity muscle strength is symmetrical. The patient has pain and discomfort in the lower portion of her back with pain that is radiating down into the L4-L5 dermatomal distribution. Notes pain that radiates in the area of the right hip. Notes increased pain and discomfort with prolonged standing. IMPRESSION: 1. Spinal stenosis with radiculopathy, L4-L5 on the left and right in the L4-L5 dermatomal distribution. 2. Hypertension. 3. Hypercholesterolemia. 4. Gastrointestinal problems. RECOMMENDATIONS: We discussed treatment options with the patient. Risks and benefits of an epidural steroid injection were discussed. They include but are not limited to infection, worsening of pain, no improvement in pain, nerve damage, spinal headache and the patient elects to proceed. The patient will return to the Pain Clinic, at which time she would then undergo an epidural steroid injection. The patient states that her insurance is changing on 07/02/2019. She will reschedule for an epidural steroid injection at the time when her insurance has been re-negotiated. [facility] [address] [place] [address] PAIN MANAGEMENT CONSULTATION Name: HANNAH RIVERA Room #: REG [facility]#: [id number] Admission: 06/28/19 Attend Phys: Jaxon Melgar MD Discharge: Date of : 54 Report #: [id number] We would like to thank you for letting us participate in her care. We hope she continues to improve. <ELECTRONICALLY SIGNED> By: Jaxon Melgar MD 07/07/19 [id number] Jaxon Melgar MD /nt
== END ==
LOC: PAIN 06:59
DX: M48.061 Spinal stenosis, lumbar region without neurogenic claudication (principal); I10 Essential (primary) hypertension; E78.00 Pure hypercholesterolemia, unspecified; K21.9 Gastro-esophageal reflux disease without esophagitis; Z79.899 Other long term (current) drug therapy

== ENCOUNTER 2020-04-11 14:13 | Emergency (ER) | payer OTHER ==
[~2020-04-11] VITALS: Ht 170.2 cm; Wt 63.5 kg
[2020-04-11 15:52] LABS: BASOPHILS 0.2 % (0.0-2.0); EOSINOPHILS 8.1 % (0.0-3.0); HEMATOCRIT 26.7 % (37.0-47.0); HEMOGLOBIN 8.8 gm/dL (12.0-15.0); MCH 29.7 pg (26.0-34.0); MCV 90.1 fL (80.0-100.0); PLATELET COUNT 463 thou/uL (150-400); POLYS 63.7 % (36.0-66.0); RBC 2.97 mil/uL (4.20-5.00); RDW 14.7 % (10.5-14.5); WBC 7.9 thou/uL (4.0-11.0)
[2020-04-11 16:15] LABS: ALBUMIN 3.1 g/dL (3.4-5.0); CREATININE 1.6 mg/dL (0.6-1.0); DIRECT BILIRUBIN 0.1 mg/dL (<0.1-0.2); POTASSIUM 4.5 mmol/L (3.5-5.1); TOTAL BILIRUBIN 0.4 mg/dL (0.2-1.0); TOTAL PROTEIN 7.1 g/dL (6.4-8.2)
[2020-04-11 16:23] LABS: CALCIUM 9.8 mg/dL (8.5-10.1)
[2020-04-11] MEDS ORDERED: ULTRAM 50MG TAB50 MG PO (16:51)
[2020-04-11] MEDS ORDERED: DOXYCYCLINE 10100 MG PO (16:51)
[2020-04-11 17:10] VITALS: BP 117/48
== END 2020-04-11 17:10 | disposition home or self-care (01) ==
LOC: ER 14:13
PROVIDERS: Nurse Practitioner
DX: S31.104D Unspecified open wound of abdominal wall, left lower quadrant without penetration into peritoneal cavity, subsequent encounter (principal); I10 Essential (primary) hypertension; F17.210 Nicotine dependence, cigarettes, uncomplicated; Z48.01 Encounter for change or removal of surgical wound dressing; Z90.711 Acquired absence of uterus with remaining cervical stump; Z98.51 Tubal ligation status; Z79.899 Other long term (current) drug therapy; Z88.8 Allergy status to other drugs, medicaments and biological substances; Z88.0 Allergy status to penicillin; Z88.2 Allergy status to sulfonamides; X58.XXXD Exposure to other specified factors, subsequent encounter

== ENCOUNTER → 2020-04-17 | Outpatient (CLI) | payer OTHER ==
[~2020-04-17] MED LIST changes: +DOXYCYCLINE 10100 MG PO; +ULTRAM 50MG TAB50 MG PO
== END ==
LOC: HYPER 08:32
PROVIDERS: ATTEND Emergency Medicine
DX: T81.31XA Disruption of external operation (surgical) wound, not elsewhere classified, initial encounter (principal); L98.492 Non-pressure chronic ulcer of skin of other sites with fat layer exposed; G60.3 Idiopathic progressive neuropathy; I10 Essential (primary) hypertension; F32.9 Major depressive disorder, single episode, unspecified; Z87.891 Personal history of nicotine dependence; Z90.710 Acquired absence of both cervix and uterus; Z90.49 Acquired absence of other specified parts of digestive tract; Z81.2 Family history of tobacco abuse and dependence; Z79.82 Long term (current) use of aspirin; Y92.238 Other place in hospital as the place of occurrence of the external cause; Y83.8 Other surgical procedures as the cause of abnormal reaction of the patient, or of later complication, without mention of misadventure at the time of the procedure

== ENCOUNTER → 2020-04-23 | Outpatient (CLI) | payer OTHER | LOC: HYPER 10:34 | PROVIDERS: ATTEND Emergency Medicine | DX: T81.31XD Disruption of external operation (surgical) wound, not elsewhere classified, subsequent encounter (principal); L98.492 Non-pressure chronic ulcer of skin of other sites with fat layer exposed; G60.3 Idiopathic progressive neuropathy; I10 Essential (primary) hypertension; F32.9 Major depressive disorder, single episode, unspecified; Z87.891 Personal history of nicotine dependence; Z79.82 Long term (current) use of aspirin; Z81.2 Family history of tobacco abuse and dependence; Z98.51 Tubal ligation status; Z90.710 Acquired absence of both cervix and uterus; Y83.8 Other surgical procedures as the cause of abnormal reaction of the patient, or of later complication, without mention of misadventure at the time of the procedure ==

== ENCOUNTER → 2020-05-01 | Outpatient (CLI) | payer OTHER | LOC: HYPER 13:19 | PROVIDERS: ATTEND Emergency Medicine | DX: T81.31XD Disruption of external operation (surgical) wound, not elsewhere classified, subsequent encounter (principal); L98.492 Non-pressure chronic ulcer of skin of other sites with fat layer exposed; G60.3 Idiopathic progressive neuropathy; F32.9 Major depressive disorder, single episode, unspecified; Z87.891 Personal history of nicotine dependence; Z79.82 Long term (current) use of aspirin; Z81.2 Family history of tobacco abuse and dependence; Y83.8 Other surgical procedures as the cause of abnormal reaction of the patient, or of later complication, without mention of misadventure at the time of the procedure ==

== ENCOUNTER → 2020-05-15 | Outpatient (CLI) | payer OTHER | LOC: HYPER 13:15 | PROVIDERS: ATTEND Emergency Medicine | DX: T81.31XD Disruption of external operation (surgical) wound, not elsewhere classified, subsequent encounter (principal); L98.495 Non-pressure chronic ulcer of skin of other sites with muscle involvement without evidence of necrosis; G60.3 Idiopathic progressive neuropathy; F32.9 Major depressive disorder, single episode, unspecified; Z87.891 Personal history of nicotine dependence; Z81.2 Family history of tobacco abuse and dependence; Y83.8 Other surgical procedures as the cause of abnormal reaction of the patient, or of later complication, without mention of misadventure at the time of the procedure ==

== ENCOUNTER → 2020-05-29 | Outpatient (CLI) | payer OTHER | LOC: HYPER 12:11 | PROVIDERS: ATTEND Emergency Medicine | DX: T81.31XD Disruption of external operation (surgical) wound, not elsewhere classified, subsequent encounter (principal); L98.495 Non-pressure chronic ulcer of skin of other sites with muscle involvement without evidence of necrosis; G60.3 Idiopathic progressive neuropathy; I10 Essential (primary) hypertension; F32.9 Major depressive disorder, single episode, unspecified; Z87.891 Personal history of nicotine dependence; Z90.710 Acquired absence of both cervix and uterus; Z81.2 Family history of tobacco abuse and dependence; Y83.8 Other surgical procedures as the cause of abnormal reaction of the patient, or of later complication, without mention of misadventure at the time of the procedure ==

== ENCOUNTER → 2020-06-12 | Outpatient (CLI) | payer OTHER | LOC: HYPER 13:45 | PROVIDERS: ATTEND Emergency Medicine | DX: T81.31XD Disruption of external operation (surgical) wound, not elsewhere classified, subsequent encounter (principal); L98.495 Non-pressure chronic ulcer of skin of other sites with muscle involvement without evidence of necrosis; G60.3 Idiopathic progressive neuropathy; I10 Essential (primary) hypertension; F32.9 Major depressive disorder, single episode, unspecified; Z87.891 Personal history of nicotine dependence; Z81.2 Family history of tobacco abuse and dependence; Y83.8 Other surgical procedures as the cause of abnormal reaction of the patient, or of later complication, without mention of misadventure at the time of the procedure ==

== ENCOUNTER → 2020-10-21 | Outpatient (CLI) | payer OTHER | LOC: HYPER 08:53 | PROVIDERS: ATTEND Emergency Medicine | DX: S31.104D Unspecified open wound of abdominal wall, left lower quadrant without penetration into peritoneal cavity, subsequent encounter (principal); G60.3 Idiopathic progressive neuropathy; G89.29 Other chronic pain; I10 Essential (primary) hypertension; F32.9 Major depressive disorder, single episode, unspecified; F17.290 Nicotine dependence, other tobacco product, uncomplicated; Z81.2 Family history of tobacco abuse and dependence; Z79.82 Long term (current) use of aspirin; Z79.899 Other long term (current) drug therapy; Z90.710 Acquired absence of both cervix and uterus; Z90.49 Acquired absence of other specified parts of digestive tract; X58.XXXD Exposure to other specified factors, subsequent encounter ==

== ENCOUNTER → 2020-11-01 | Outpatient (CLI) | payer OTHER | LOC: SJCVCIMAG 10-30 13:57 | PROVIDERS: ATTEND Emergency Medicine | DX: I73.9 Peripheral vascular disease, unspecified (principal); M79.604 Pain in right leg; M79.605 Pain in left leg ==

== ENCOUNTER 2021-04-19 10:03 | Emergency (ER) | payer OTHER ==
[~2021-04-19] VITALS: Ht 167.6 cm; Wt 63.0 kg
[2021-04-19 12:24] VITALS: BP 173/89
== END 2021-04-19 12:30 | disposition home or self-care (01) ==
LOC: ER 10:03
DX: M62.838 Other muscle spasm (principal); M54.2 Cervicalgia; I10 Essential (primary) hypertension; I25.2 Old myocardial infarction; F17.210 Nicotine dependence, cigarettes, uncomplicated; Z90.710 Acquired absence of both cervix and uterus; Z79.891 Long term (current) use of opiate analgesic; Z79.899 Other long term (current) drug therapy; V49.09XA Driver injured in collision with other motor vehicles in nontraffic accident, initial encounter; Y93.89 Activity, other specified; Y92.89 Other specified places as the place of occurrence of the external cause; Y99.8 Other external cause status